=== PATIENT | female | born 1995 | race Caucasian/White ===

== ENCOUNTER 2017-08-25 09:45 | Emergency (ER) | payer MEDICAID ==
[2017-08-25] MEDS ORDERED: Naproxen 550 mg Tab PO STA (10:31)
[2017-08-25] MEDS ORDERED: Naproxen 550 mg Tab PO ONE (10:42)
[2017-08-25 10:43] LABS: HCG,QUALITATIVE URINE NEGATIVE (NEGATIVE)
--- NOTE | 2017-08-25 10:48 | RAD ---
HISTORY: left upper back pain COMPARISON: None available. TECHNIQUE: Chest PA and lateral FINDINGS: LUNGS: No focal consolidation. Please note that chest x-ray has limited sensitivity for the detection of pulmonary masses. PLEURA: No significant pleural effusion identified. No definite pneumothorax . CARDIOVASCULAR: The cardiomediastinal silhouette appears within normal limits of size. OSSEOUS STRUCTURES: No acute osseous abnormality identified. VISUALIZED UPPER ABDOMEN: Unremarkable. OTHER FINDINGS: None. IMPRESSION: No focal consolidation, significant pleural effusion, or definite pneumothorax identified.
[2017-08-25 10:51] LABS: SQUAMOUS EPITHIAL 6 /hpf (0-5); URINE BACTERIA RARE (<OCC); URINE BILIRUBIN NEGATIVE (NEGATIVE); URINE BLOOD NEGATIVE (NEGATIVE); URINE CLARITY Clear (Clear); URINE COLOR Yellow (YELLOW); URINE GLUCOSE (UA) NORMAL (Normal); URINE LEUKOCYTE ESTERASE NEG Leu/uL (Negative); URINE NITRATE NEGATIVE (NEGATIVE); URINE PROTEIN NEGATIVE (NEGATIVE); URINE UROBILINOGEN NORMAL mg/dL (0.2-1.0)
[2017-08-25 11:48] VITALS: BP 105/71; PULSE 64; RESP 18; TEMP 98.3; O2SAT 98
--- NOTE | 2017-08-25 12:34 | C.PDOC ---
History Of Present Illness 22 y/o female presents to the ED c/o left upper back pain for 4 days. the patient states that the pain worsens with movement especially when she came out of bed this morning. The patient denies fall injuries, fever, cough, SOB,chest pain, hematuria, and dysuria. Time Seen by Provider: 08/25/17 10:12 Chief Complaint (Nursing): Back Pain History Per: Patient History/Exam Limitations: no limitations Onset/Duration Of Symptoms: Days Current Symptoms Are (Timing): Still Present Previous Symptoms: Back Pain (left upper ) Exacerbating Factor(s): Movement (worse ) Additional History Per: Patient Past Medical History Reviewed: Historical Data, Nursing Documentation, Vital Signs Vital Signs: Last Vital Signs Temp 98.3 F 08/25/17 11:47 Pulse 64 08/25/17 11:47 Resp 18 08/25/17 11:47 BP 105/71 08/25/17 11:47 Pulse Ox 98 08/25/17 16:58 - Medical History PMH: Anemia Surgical History: No Surg Hx Family History: States: No Known Family Hx - Social History Hx Alcohol Use: No Hx Substance Use: No - Immunization History Hx Tetanus Toxoid Vaccination: No Hx Influenza Vaccination: No Hx Pneumococcal Vaccination: No Review Of Systems Except As Marked, All Systems Reviewed And Found Negative. Constitutional: Negative for: Fever, Chills Cardiovascular: Negative for: Chest Pain Respiratory: Negative for: Cough, Shortness of Breath Genitourinary: Negative for: Dysuria Musculoskeletal: Positive for: Back Pain (left upper ) Skin: Negative for: Bruising Physical Exam - Physical Exam Appears: Non-toxic, No Acute Distress, Other (comfortable and anxious ) Skin: Warm, Dry Head: Atraumatic, Normacephalic Eye(s): bilateral: Normal Inspection Oral Mucosa: Moist Neck: Supple Chest: Symmetrical Cardiovascular: Rhythm Regular Respiratory: No Rales, No Rhonchi Gastrointestinal/Abdominal: Soft, No Tenderness, No Guarding, No Rebound Back: No CVA Tenderness, No Decreased ROM, Paraspinal Tenderness (with muscle spasm ), Other (left proxmial t8 level tenderness to palpate ) Neurological/Psych: Oriented x3, Normal Speech Gait: Steady ED Course And Treatment O2 Sat by Pulse Oximetry: 98 (RA) Progress Note: Chest X-ray was performed. Exam is unremarkable. Upon reassessment, the patient is afebrile and comfortable. The patient was given Naproxen and Flexeril . The patient is advised to have a 1-2 day follow up with her PCP for further evalaution. Medical Decision Making Medical Decision Making: HISTORY: left upper back pain COMPARISON: None available. TECHNIQUE: Chest PA and lateral FINDINGS: LUNGS: No focal consolidation. Please note that chest x-ray has limited sensitivity for the detection of pulmonary masses. PLEURA: No significant pleural effusion identified. No definite pneumothorax . CARDIOVASCULAR: The cardiomediastinal silhouette appears within normal limits of size. OSSEOUS STRUCTURES: No acute osseous abnormality identified. VISUALIZED UPPER ABDOMEN: Unremarkable. OTHER FINDINGS: None. IMPRESSION: No focal consolidation, significant pleural effusion, or definite pneumothorax identified. Disposition Counseled Patient/Family Regarding: Diagnosis, Need For Followup, Rx Given - Disposition Referrals: Shaik Golden MD [Staff Provider] - Disposition: HOME/ ROUTINE Disposition Time: 12:30 Condition: STABLE Additional Instructions: FOLLOW UP WITH YOUR DOCTOR/CLINIC IN 1-2 DAYS USE MEDICATIONS NEEDED RETURN TO ER IF YOUR SYMPTOMS WORSEN Prescriptions: Cyclobenzaprine [Cyclobenzaprine HCl] 10 mg PO BID PRN #15 tab PRN Reason: Muscle Spasm Naproxen 375 mg PO BID PRN #20 tablet PRN Reason: pain Instructions: Back Pain (ED) Forms: [facility] (Croatian) Print Language: CENTRAL AFRICAN - POA Present On Arrival: None - Clinical Impression Clinical Impression: Thoracic back pain - Scribe Statement The provider has reviewed the documentation as recorded by the Scribe Dianelys Pretty
== END 2017-08-25 12:38 | disposition home or self-care (01) ==
LOC: C.ER 09:45
DX: M54.6 Pain in thoracic spine (principal)

== ENCOUNTER 2018-07-20 12:13 | Day surgery (SDC) | payer MEDICAID ==
[2018-07-20 12:44] VITALS: RESP 18
[2018-07-20] MEDS ORDERED: Bupivacaine HCl 0.5% PF (30 ml) Inj ONE (13:05)
[2018-07-20] MEDS ORDERED: Lidocaine 2% MPF (5 ml) Inj ONE (13:05)
[2018-07-20] MEDS ORDERED: ceFAZolin 1 gm FROZEN Premix 1 GM/50 ML ML IVPB ONE (13:06)
[2018-07-20] MEDS ORDERED: Propofol 10 mg/ml Inj (20 ML) ONE ×2 (13:28→13:41)
[2018-07-20] MEDS ORDERED: Midazolam 2 MG/2 ML VIAL ONE ×2 (13:29→13:56)
[2018-07-20] MEDS ORDERED: HYDROmorphone 0.5 mg/0.5 ml ISec IVP PRN ×2 (13:54→14:59)
[2018-07-20] MEDS ORDERED: Oxycodone/Acetaminophen 5/325 mg Tab PO PRN ×2 (15:14)
--- NOTE | 2018-07-20 15:14 | PCM.SURG1 ---
Surgeon's Initial Post Op Note - Surgeon's Notes Surgeon: Dr. Briseno, DPM Inspector Missile: Dr. Esperanza Coulter, PGY3, Dr. Rupal Taylor PGY1 Type of Anesthesia: IV Sedation Pre-Operative Diagnosis: Hammertoe deformity of digits 2, 3, 4 Operative Findings: See dictation. I: None. M: 3-0 Prolene, 3-0 Vicryl Post-Operative Diagnosis: Same Operation Performed: Arthroplasty of 2nd, 3rd, 4th digits Specimen/Specimens Removed: None Estimated Blood Loss: EBL {In ML}: 5 Blood Products Given: N/A Drains Used: No Drains Post-Op Condition: Good Date of Surgery/Procedure: 07/20/18 Time of Surgery/Procedure: 15:13
[2018-07-20 16:05] VITALS: TEMP 97.7
--- NOTE | 2018-07-20 16:05 | RAD ---
Date of service: 07/20/2018 PROCEDURE: Left Foot Radiographs. AP and lateral views of the left foot performed. Overlying gauze bandages surrounding the phalanges and distal metatarsals obscure fine soft tissue and bone detail. HISTORY: Status post left foot surgery COMPARISON: No prior study available for comparison. FINDINGS: BONES: Apparent postoperative partial resection changes of the distal margins of the middle phalanges 2nd 3rd and 4th digits.. Suspect similar postoperative partial resection of the of the distal margins of the proximal phalanges of 2nd 3rd and 4th digits as well.. There is secondary widening of the respective joint spaces.. Surrounding soft tissue swelling about the phalanges and distal metatarsals JOINTS: As above SOFT TISSUES: As above OTHER FINDINGS: None. IMPRESSION: Postoperative changes of the 2nd 3rd and 4th phalanges as described with of surrounding soft tissue swelling.
[2018-07-20 16:44] VITALS: BP 106/63; PULSE 85; O2SAT 96
--- NOTE | 2018-07-23 07:54 | OP ---
PROCEDURE DATE: 07/20/2018 SURGEON: Dr. Torres Angela, MARK ASSISTANTS: Rupal Taylor, PGY-1; Esperanza Coulter, PGY-3. ANESTHESIA: IV sedation with local. PREOPERATIVE DIAGNOSIS: Left foot painful hammertoe deformities of digits 2, 3, and 4. POSTOPERATIVE DIAGNOSIS: Left foot painful hammertoe deformities of digits 2, 3, and 4. NAME OF PROCEDURE: Left foot proximal interphalangeal joint and distal interphalangeal joint arthroplasty of digits 2, 3, 4, left foot. INDICATIONS: The patient is a 23-year-old female with the above diagnosis. The patient has exhausted all conservative treatments at this time and now requests surgical intervention. The patient signed the consent after careful explanation of risks, benefits, complications, and alternatives of the surgical procedure. No guarantees were given nor implied. N.p.o. status was confirmed prior to taking the patient to the operating room. PREPARATION: The patient was brought back to the operating room and placed on the table in a supine position. A well-padded pneumatic ankle tourniquet was placed to the patient's left ankle in the supramalleolar position. After induction of IV sedation, the patient received a total of 20 mL of 1:1 mixture of 0.5% Marcaine and 1% lidocaine plain in a local block fashion to the left foot. Once the anesthesia was achieved, the foot was then prepped and draped in the usual sterile manner. The pneumatic ankle tourniquet was then inflated to 250 mmHg and the procedure began. DESCRIPTION OF PROCEDURE: Procedure 1: Left 2nd digit PIPJ and DIPJ arthroplasty Attention was directed to the dorsal aspect of the left 2nd digit where a transverse elliptical incision was made overlying the PIPJ. The incision was deepened down to subcutaneous tissue with care being taken to identify and retract all vital neurovascular structures. All bleeders were cauterized and ligated as necessary. At this time, a transverse tenotomy and capsulotomy was performed to the PIPJ and the head of the proximal phalanx was freed from the capsular and ligamentous attachment. Next, using a saw, the head of the proximal phalanx was resected and passed from the operative site. Next, using a fresh #15 blade dorsal aspect of the left 2nd digit where a transverse elliptical incision was made overlying the DIPJ. The incision was then deepened down to the subcutaneous tissue with care being taken to identify and retract all vital neurovascular structure. All bleeders were cauterized and ligated as necessary. At this time, a transverse tenotomy and capsulotomy were performed to the DIPJ in the base of the distal phalanx which was freed from its capsular and ligamentous attachments. Next, using oscillating saw, the head of the intermediate phalanx was resected and passed off the operative site. Procedure 2: Left 3rd digit PIPJ and DIPJ arthroplasty Attention was directed to the dorsal aspect of the left 3rd digit where a transverse elliptical incision was made overlying the PIPJ. The incision was deepened down to subcutaneous tissue with care being taken to identify and retract all vital neurovascular structures. All bleeders were cauterized and ligated as necessary. At this time, a transverse tenotomy and capsulotomy was performed to the PIPJ and the head of the proximal phalanx was freed from the capsular and ligamentous attachment. Next, using a saw, the head of the proximal phalanx was resected and passed from the operative site. Next, using a fresh #15 blade dorsal aspect of the left 3rd digit where a transverse elliptical incision was made overlying the DIPJ. The incision was then deepened down to the subcutaneous tissue with care being taken to identify and retract all vital neurovascular structure. All bleeders were cauterized and ligated as necessary. At this time, a transverse tenotomy and capsulotomy were performed to the DIPJ in the base of the distal phalanx which was freed from its capsular and ligamentous attachments. Next, using oscillating saw, the head of the intermediate phalanx was resected and passed off the operative site. Procedure 3: Left 4th digit PIPJ and DIPJ arthroplasty Attention was directed to the dorsal aspect of the left 4th digit where a transverse elliptical incision was made overlying the PIPJ. The incision was deepened down to subcutaneous tissue with care being taken to identify and retract all vital neurovascular structures. All bleeders were cauterized and ligated as necessary. At this time, a transverse tenotomy and capsulotomy was performed to the PIPJ and the head of the proximal phalanx was freed from the capsular and ligamentous attachment. Next, using a saw, the head of the proximal phalanx was resected and passed from the operative site. Next, using a fresh #15 blade dorsal aspect of the left 4th digit where a transverse elliptical incision was made overlying the DIPJ. The incision was then deepened down to the subcutaneous tissue with care being taken to identify and retract all vital neurovascular structure. All bleeders were cauterized and ligated as necessary. At this time, a transverse tenotomy and capsulotomy were performed to the DIPJ in the base of the distal phalanx which was freed from its capsular and ligamentous attachments. Next, using oscillating saw, the head of the intermediate phalanx was resected and passed off the operative site. The procedure was completed on the second, third, and fourth digits. Next, the surgical wounds over the digits 2, 3, and 4, were flushed copiously with normal amount of saline. The tendon of 2, 3, and 4 were then all reapproximated using 3-0 Vicryl suture. The subcutaneous tissues of the second digit was then reapproximated with 3-0 Vicryl. The skin edges of 2, 3, 4 were then reapproximated and coapted with 3-0 Prolene in a simple suture technique. Next, Betadine-soaked gauze was then applied to the incision site and dressed with DSD, Kerlix, and Sundeep. POSTOPERATIVE CONDITION: The patient tolerated the anesthesia and procedure well and was escorted to the recovery room with vital signs stable and neurovascular status intact to the left foot. The patient to follow up with Dr. Angela in 1 week in his office. HANSA Montilla Karol Angela DPM SANDIP
== END 2018-07-20 16:50 | disposition home or self-care (01) ==
LOC: C.SDS 12:13
PROVIDERS: ATTEND Podiatrist Foot & Ankle Surgery
DX: M20.42 Other hammer toe(s) (acquired), left foot (principal)
CPT/HCPCS: 28285; 73620; 88305; J0690; J2250; J2704; J3010

== ENCOUNTER 2018-09-07 11:41 | Day surgery (SDC) | payer MEDICAID ==
[2018-09-03 12:13] VITALS: BMI 25.0
[2018-09-07] MEDS ORDERED: Lidocaine Hydrochloride 10 ML INJ ONE (14:52)
[2018-09-07] MEDS ORDERED: ceFAZolin 1 gm in NS 1 GM/100 ML BAG IVPB ONE (14:52)
[2018-09-07] MEDS ORDERED: Bupivacaine 0.25% 20 ML INJ IJ ONE (14:52)
[2018-09-07] MEDS ORDERED: Midazolam 2 MG/2 ML VIAL ONE ×2 (14:55→15:08)
[2018-09-07] MEDS ORDERED: Propofol 10 mg/ml Inj (20 ML) ONE ×2 (14:57→15:04)
[2018-09-07] MEDS ORDERED: HYDROmorphone 0.5 mg/0.5 ml ISec IVP PRN (15:43)
[2018-09-07] MEDS ORDERED: Oxycodone/Acetaminophen 5/325 mg Tab PO PRN ×2 (16:15)
--- NOTE | 2018-09-07 16:16 | PCM.SURG1 ---
Surgeon's Initial Post Op Note - Surgeon's Notes Surgeon: Dr. Perez Inside Phone Sales: Samanta Hyde PGY-2, Izzy Burns PGY-2 Type of Anesthesia: IV Sedation, Local Anesthesia Administered By: Larry ZALDIVAR/Lui VILLASENOR Pre-Operative Diagnosis: 1) right 2nd digit hammertoe. 2) right 3rd digit hammertoe. 3) right 4th digit hammertoe. 4) ingrown toenail right hallux medial nail border Operative Findings: I: 20cc 1:1 mixture 0.25% Marcaine plain and 1% Lidocaine plain. M: 4-0 Prolene, betadine, DSD, [place] Post-Operative Diagnosis: same Operation Performed: 1) right foot matrixectomy of ingrown toenail medial nail border. 2) right foot 2nd digit DIPJ and PIPJ arthroplasty. 3) right foot 3rd digit PIPJ arthroplasty. 4) right foot 4th digit PIPJ arthroplasty Specimen/Specimens Removed: none Estimated Blood Loss: EBL {In ML}: 5 Blood Products Given: N/A Drains Used: No Drains Post-Op Condition: Good Date of Surgery/Procedure: 09/07/18 Time of Surgery/Procedure: 16:17
[2018-09-07 17:33] VITALS: TEMP 98; O2SAT 100
[2018-09-07 17:59] VITALS: PULSE 67
[2018-09-07 18:02] VITALS: BP 103/60; RESP 17
--- NOTE | 2018-09-10 17:23 | RAD ---
Date of service: 09/07/2018 PROCEDURE: Right Foot Radiographs. HISTORY: s/p right foot surgery COMPARISON: None. FINDINGS: BONES: Osteotomy findings noted 2nd, 3rd and 4th digits. JOINTS: Normal. SOFT TISSUES: Soft tissue swelling at the surgical site identified. OTHER FINDINGS: None. IMPRESSION: Satisfactory postoperative status.
--- NOTE | 2018-09-12 07:37 | OP ---
PROCEDURE DATE: 09/07/2018 PREOPERATIVE DIAGNOSES: 1. Right second digit hammertoe. 2. Right third digit hammertoe. 3. Right fourth digit hammertoe. 4. Ingrown nail, right hallux-medial border. POSTOPERATIVE DIAGNOSES: 1. Right second digit hammertoe. 2. Right third digit hammertoe. 3. Right fourth digit hammertoe. 4. Ingrown nail, right hallux-medial border. NAME OF PROCEDURES: 1. Right foot second digit distal interphalangeal joint and proximal interphalangeal joint arthroplasty. 2. Right foot third digit proximal interphalangeal joint arthroplasty. 3. Right foot fourth digit proximal interphalangeal joint arthroplasty. 4. Right foot matricectomy of ingrown toenail hallucal medial border. SURGEON: Torres Angela DPM ASSISTANTS: Josue Hyde DPM, PGY-2; Izzy Burns, PGY-2 ANESTHESIA: IV sedation with local. INDICATIONS: The patient is a 23-year-old female with the above-mentioned diagnoses. The patient is being treated by Dr. Angela on an outpatient basis where she has exhausted multiple forms of conservative treatment. The patient seeks surgical intervention at this time. The patient signed a consent after careful explanation of risks, benefits, alternatives, and complications to the procedure and wishes to proceed. No guarantees were given nor implied. Consent was signed and n.p.o. was confirmed prior to bringing the patient to the operating room. PREPARATION: The patient was brought into the operating room and placed on the operating room table in a supine position. A pneumatic ankle tourniquet was placed on to the right foot in a supramalleolar position. After the induction of IV sedation, a total of plain. DESCRIPTION OF PROCEDURE: #1: Right foot second digit proximal interphalangeal joint and distal phalangeal joint arthroplasty. Attention was directed to the dorsal aspect of the right second digit where the transverse elliptical incision was made overlying the proximal interphalangeal joint. The incision was deepened down through subcutaneous tissue with care being taken to identify and retract all vital neurovascular structures. All bleeders were cauterized and ligated as necessary. At this time, a transverse tenotomy and capsulotomy was performed to the proximal interphalangeal joint and the head of the proximal phalanx was freed from its capsular and ligamentous attachment. Next, utilizing a sagittal saw, the head of the proximal phalanx was resected and passed from the operative field. Next, directing attention to the distal interphalangeal joint, a transverse elliptical incision was made overlying the distal interphalangeal joint. The incision was deepened down through subcutaneous tissue with care being taken to identify and retract all vital neurovascular structures. All bleeders were ligated and cauterized as necessary. At this time, a transverse tenotomy and capsulotomy was performed to the distal interphalangeal joint at the base of the distal phalanx, and the base of the distal phalanx was freed from its capsular and ligamentous attachment. Next, utilizing a sagittal saw, the head of the middle phalanx was resected and passed from the operative field. The wounds were then flushed with copious amounts of sterile saline. The tendon was reapproximated using 4-0 Vicryl and skin was reapproximated using 4-0 Prolene. PROCEDURE #2: Right foot third digit proximal interphalangeal joint arthroplasty. Attention was directed to the dorsal aspect of the right third digit, where a transverse elliptical incision was made overlying the proximal interphalangeal joint. The incision was deepened down through subcutaneous tissues with care being taken to identify and retract all vital neurovascular structures. All bleeders were cauterized and ligated as necessary. At this time, a transverse tenotomy and capsulotomy was performed to the proximal interphalangeal joint and the head of the proximal phalanx was freed from its capsular and ligamentous attachment. Next, utilizing a sagittal saw, the head of the proximal phalanx was resected and passed from the operative site. Correction of the deformity was noted at this time and noted to be excellent. The wound was then flushed with copious amounts of sterile saline. The tendon was reapproximated using 4-0 Vicryl and skin was reapproximated using 4-0 Prolene. PROCEDURE #3: Right foot fourth digit proximal interphalangeal joint arthroplasty. Attention was directed to the dorsal aspect of the right foot fourth digit where a transverse elliptical incision was made overlying the proximal interphalangeal joint. The incision was deepened down through subcutaneous tissue with care being taken to identify and retract all vital neurovascular structures. All bleeders were cauterized and ligated as necessary. At this time, a transverse tenotomy and capsulotomy was performed to the proximal interphalangeal joint and the head of the proximal phalanx was then freed from its capsular and ligamentous attachment. Next, utilizing a sagittal saw, the head of the proximal phalanx was resected and passed from the operative field. Correction of the deformity was noted at this time and noted to be excellent. The wound was then flushed with copious amounts of sterile saline. The tendon was reapproximated using 4-0 Vicryl and skin was reapproximated using 4-0 Prolene. PROCEDURE #4: Right foot matricectomy of ingrown toenail hallucal-medial border. Attention was directed to the right hallux medial border. Utilizing a 15-blade, a 0.5 cm linear incision was made to the proximal aspect of the medial nailfold down to bone. Next, utilizing a hemostat, the matrix was exposed. Utilizing an [place] anvil, a linear incision was made to the medial aspect of the hallucal nail extending into the proximal nailfold. With the use of a straight hemostat, nail borders were undermined, the nail was freed from the nail bed and passed from the operative field. The matrix was then debrided with curet. Next, with the use of a bone rasp, the medial aspect of the distal phalanx was debrided . The wound was then flushed with copious amounts of sterile saline and the skin was reapproximated using 4-0 Prolene. Postoperative bandages included Betadine-soaked Adaptic and a dry sterile dressing. POSTOPERATIVE CONDITION: The patient tolerated the procedure and anesthesia well, and was escorted to the recovery room with vital signs stable and neurovascular status intact to the right lower extremity. The patient will follow up with Dr. Angela in his office on an outpatient basis. Josue Hyde DPM Torres Angela DPM [facility] # [id number]
== END 2018-09-07 17:59 | disposition home or self-care (01) ==
LOC: C.SDS 11:41
PROVIDERS: ATTEND Podiatrist Foot & Ankle Surgery
DX: M20.41 Other hammer toe(s) (acquired), right foot (principal); L60.0 Ingrowing nail; J45.909 Unspecified asthma, uncomplicated; D50.9 Iron deficiency anemia, unspecified
CPT/HCPCS: 11750; 28285; 73630; 88304; J0690; J2250; J2704; J3010

== ENCOUNTER 2018-09-22 08:51 | Outpatient (CLI) | payer MEDICAID | END 2018-09-22 08:52 | disposition home or self-care (01) | LOC: C.CTH 08:51 | DX: J32.2 Chronic ethmoidal sinusitis (principal) ==